=== PATIENT | female | born 1960 | race Caucasian/White ===

== ENCOUNTER 2020-10-04 12:26 | Outpatient (CLI) | payer OTHER, SELFPAY ==
--- NOTE | ~2020-10-04 | MM_ITS ---
EXAMINATION: MM screening traci BI w sri HISTORY: Screening TECHNIQUE: Craniocaudal and mediolateral oblique 3-D tomosynthesis images were obtained and synthetic 2-D images were generated. CAD analysis was submitted and interpreted. COMPARISON: No prior mammogram is available for comparison at this institution. BREAST PARENCHYMAL COMPOSITION: There are scattered areas of fibroglandular density. FINDINGS: There is no evidence of suspicious mass, calcification, or architectural distortion to sugg est malignancy in either breast. There has been no suspicious interval change. IMPRESSION: 1. No mammographic evidence of malignancy. 2. Recommend routine screening mammography in one year. BI-RADS Category 1: Negative Reviewed, dictated and finalized at location A.
== END 2020-10-04 12:27 | disposition home or self-care (01) ==
LOC: ANHIMG 12:27
PROVIDERS: PCP Internal Medicine; Visit Provider Internal Medicine
DX: Z12.31 Encounter for screening mammogram for malignant neoplasm of breast (principal)
CPT/HCPCS: 77063; 77067

== ENCOUNTER 2020-11-23 08:04 | Outpatient (CLI) | payer OTHER, SELFPAY ==
--- NOTE | ~2020-11-23 | DEXA_ITS ---
Bone Density Report Name: Batsheva Emery Age: 60 Sex: Female Ethnicity: White Date of : 1960 Indication: postmenopausal; hysterectomy; Referring Provider: ESTEVAN BROOKE Study: Bone densitometry was performed. Exam Date: November 23, 2020 Accession number: [id number] Bone Density: Region BMD T-score Z-score Classification AP Spine (L1-L4) 0.872 -1.6 0.0 Osteopenia Femoral Neck (Left) 0.599 -2.2 -0.9 Osteopenia Total Hip (Left) 0.774 -1.4 -0.3 Osteopenia Total Hip Bilateral Avg 0.786 -1.3 -0.2 Osteopenia Femoral Neck (Right) 0.559 -2.6 -1.2 Osteoporosis Total Hip (Right) 0.797 -1.2 -0.1 Osteopenia World Health Organization criteria for BMD impression classify patients as: Normal (T-score at or above -1.0), Osteopenia (T-score between -1.0 and -2.5), or Osteoporosis (T-score at or below -2.5). 10-year Fracture Risk: FRAX not reported because: Some T-score for Spine Total or Hip Total or Femoral Neck at or below -2.5 Clinical Information Provided by Patient: Has used the following medications: Vitamin D Has the following medical conditions: Hysterectomy Patient maximum height was 66 Menopause Age: 45 Drinks caffeinated beverages Onset of menses at age 10 Number of children 2 Impression: The patient has osteoporosis, based on the Right Femoral Neck T-score. Discussion: INCREASED RISK OF FRACTURE. BONE DENSITY IS UNDESIRABLY LOW AT ONE OR MORE SKELETAL SITES, CONSISTENT WITH POSTMENOPAUSAL OSTEOPOROSIS. This patient's lowest T-score meets the World Health Organization's (WHO) criteria for osteoporosis at one or more sites (T-score -2.5 or below). In untreated patients, the risk of osteoporotic fracture increases approximately two-fold for each 1.0 SD decrease in T-score. Low bone density is not the only risk factor for fracture; also consider factors such as patient's age, frailty or poor health, risk of falling, risk of injury, previous osteoporotic fracture, family history of osteoporosis, cigarette smoking, low body weight, etc. Not everyone with low bone mineral density has osteoporosis; osteomalacia and other metabolic bone disorders should also be considered. Patients who have osteoporosis should be evaluated for specific diseases and conditions (secondary causes) that may cause or contribute to bone loss. The [place] [employer]ocrinologists (AACE) and National Osteoporosis Foundation (NOF) recommend pharmacologic intervention for all postmenopausal women whose T-score is in this range. The patient should follow a healthful lifestyle (good nutrition with adequate calcium and vitamin D, and appropriate weight-bearing exercise). Follow-Up: Consider a repeat BMD and Vertebral Fracture Assessment (VFA) exam in 2 years or sooner if medically necessary, to reassess this patient's status. Rep
== END 2020-11-23 08:05 | disposition home or self-care (01) ==
LOC: ANHIMG 08:06
PROVIDERS: PCP Internal Medicine; Visit Provider Internal Medicine
DX: Z78.0 Asymptomatic menopausal state (principal); M85.88 Other specified disorders of bone density and structure, other site; M85.851 Other specified disorders of bone density and structure, right thigh; M85.852 Other specified disorders of bone density and structure, left thigh
CPT/HCPCS: 77080

== ENCOUNTER 2022-02-21 07:35 | Outpatient (CLI) | payer OTHER, SELFPAY ==
--- NOTE | ~2022-02-21 | MM_ITS ---
EXAMINATION: MM screening traci BI w sri HISTORY: Screening TECHNIQUE: Craniocaudal and mediolateral oblique 3-D tomosynthesis images were obtained and synthetic 2-D images were generated. CAD analysis was submitted and interpreted. COMPARISON: 10/04/2020 BREAST PARENCHYMAL COMPOSITION: There are scattered areas of fibroglandular density. FINDINGS: There is no evidence of suspicious mass, calcification, or architectural distortion to sugg est malignancy in either breast. There has been no suspicious interval change. IMPRESSION: 1. No mammographic evidence of malignancy. 2. Recommend routine screening mammography in one year. BI-RADS Category 1: Negative Reviewed, dictated and finalized at location A. TEST CHECKER
--- NOTE | ~2022-02-21 | DEXA_ITS ---
Bone Density Report Name: AFTAB MICHAEL Age: 61 Sex: Female Ethnicity: White Date of : 1960 Indication: postmenopausal; screening for osteoporosis; hysterectomy; Referring Provider: ESTEVAN BROOKE Study: Bone densitometry was performed. Exam Date: February 21, 2022 Accession number: [id number] Bone Density: Region BMD T-score Z-score Classification AP Spine(L1-L4) 0.887 -1.5 0.2 Osteopenia Femoral Neck (Left) 0.579 -2.4 -1.0 Osteopenia Total Hip (Left) 0.777 -1.4 -0.2 Osteopenia Femoral Neck (Right) 0.613 -2.1 -0.7 Osteopenia Total Hip (Right) 0.791 -1.2 -0.1 Osteopenia Total Hip Mean 0.784 -1.3 -0.2 Osteopenia World Health Organization criteria for BMD impression classify patients as: Normal (T-score at or above -1.0), Osteopenia (T-score between -1.0 and -2.5), or Osteoporosis (T-score at or below -2.5). 10-year Fracture Risk: FRAX not reported because: Treated for osteoporosis Clinical Information Provided by Patient: Is being treated for osteoporosis Has used the following medications: Fosamax (i.e. alendronate), Vitamin D, Calcium Has the following medical conditions: Hysterectomy, hypothyroid Patient maximum height was 66 Menopause Age: 45 Drinks caffeinated beverages Onset of menses at age 10 Number of children 2 Impression: The patient has low bone mass, based on the Left Femoral Neck T-score. Discussion: It is important to ask patients whether they are taking their medications and to encourage continued and appropriate compliance with their osteoporosis therapies to reduce fracture risk. It is also important to review their risk factors and encourage appropriate calcium and vitamin D intakes, exercise, fall prevention and other lifestyle measures. Follow-Up: Consider a repeat BMD and Vertebral Fracture Assessment (VFA) exam in 2 years or sooner if medically necessary, to reassess this patient's status. Reported by: SHERLYN on 02/21/2022 8:09:00 AM. Reviewed, dictated and finalized at location A. JENNIFER
== END 2022-02-21 07:36 | disposition home or self-care (01) ==
PROVIDERS: PCP Internal Medicine; Visit Provider Internal Medicine
DX: Z12.31 Encounter for screening mammogram for malignant neoplasm of breast (principal); M81.0 Age-related osteoporosis without current pathological fracture; M85.89 Other specified disorders of bone density and structure, multiple sites
CPT/HCPCS: 77063; 77067; 77080

== ENCOUNTER 2023-07-30 15:54 | Outpatient (CLI) | payer OTHER, SELFPAY ==
--- NOTE | ~2023-07-30 | MM_ITS ---
EXAMINATION: MM screening traci BI w rsi HISTORY: Screening TECHNIQUE: Craniocaudal and mediolateral oblique 3-D tomosynthesis images were obtained and synthetic 2-D images were generated. CAD analysis was submitted and interpreted. COMPARISON: Comparison to multiple prior studies sequentially, with oldest reviewed study dated 06/2020. BREAST PARENCHYMAL COMPOSITION: Not Dense: Breast are almost entirely fatty. FINDINGS: There is no evidence of suspicious mass, calcification, or architectural distortion to sugg est malignancy in either breast. There has been no suspicious interval change. IMPRESSION: 1. No mammographic evidence of malignancy. 2. Recommend routine screening mammography in one year. BI-RADS Category 1: Negative Reviewed, dictated and finalized at location B.
== END 2023-07-30 15:55 | disposition home or self-care (01) ==
LOC: ANHIMG 15:55
PROVIDERS: PCP Internal Medicine; Visit Provider Internal Medicine
DX: Z12.31 Encounter for screening mammogram for malignant neoplasm of breast (principal)
CPT/HCPCS: 77063; 77067

== ENCOUNTER 2023-09-17 06:31 | Day surgery (SDC) | payer MEDICARE, SELFPAY ==
[2023-08-04 15:11] VITALS: BMI 26.8
[2023-09-12 12:16] VITALS: BMI 25.0
--- NOTE | 2023-09-17 08:07 | PM.HPGS ---
History of Present Illness History of Present Illness Consent: Risks, benefits, and alternatives have been discussed and questions answered. Patient agrees to proceed with procedure. Chief complaint: History of Colon Polyps Narrative: Batsheva Emery is a 63 year old female presents for screening colonoscopy. Patient's current weight appetite and bowel movements are normal. Patient denies abdominal pain. She has had no bleeding. Previous colonoscopy his ago revealed benign colon polyp patient presents today for follow-up examination. Patient is family history is noncontributory. Review of Systems Review of Systems: All systems reviewed & are unremarkable except as noted in HPI and below PMFSH Past Medical History Medical History (Updated 08/19/23 @ 10:44 by Adrianna Raya [facility]) BMI 23.0-23.9, adult BMI 24.0-24.9, adult BMI 25.0-25.9,adult BMI 26.0-26.9,adult Breast cancer screening Encounter for preventive health examination Encounter for routine adult health examination without abnormal findings Hx of colonic polyps Hyperlipidemia Hypothyroidism (acquired) Nasal sinus congestion On fdc drug therapy Osteoporosis Peripheral neuropathy Skin lesion Statin intolerance Surgical History Surgical History H/O total hysterectomy Hx of appendectomy Family History Family History Mother Hypertension Hyperlipidemia Social History Social History Smoking status: Never smoker Second hand tobacco smoke exposure: No Alcohol intake: current Drinks per week: 3 Alcohol use details: social Substance use: never Substance use type: does not use Living arrangements: with family Gender identity (if verbalized by the patient): Female Spiritual care concerns: No Meds Home Medications and Allergies Home Medications Medication Instructions Recorded Confirmed Type multivitamin 1 tablet PO DAILY 09/21/20 09/17/23 History sodium,potassium,mag sulfates 17.5 See Rx Instructions PO .COMPLEX 08/04/23 09/17/23 Rx gram-3.13 gram-1.6 gram oral soln #354 mL (Suprep Bowel Prep Kit) phentermine 37.5 mg tablet 37.5 mg PO DAILY 09/12/23 09/17/23 History Nexlizet 180 mg-10 mg tablet See Rx Instructions .Route 09/15/23 09/17/23 Rx (bempedoic acid-ezetimibe) .COMPLEX #90 tabs alendronate 70 mg tablet See Rx Instructions .Route 09/15/23 09/17/23 Rx .COMPLEX #12 tabs levothyroxine 50 mcg tablet 50 mcg PO DAILY #90 tabs 09/15/23 09/17/23 Rx Allergies Allergy/AdvReac Type Severity Reaction Status Date / Time diphenhydramine Allergy Unknown Other Verified 09/17/23 08:02 Atnckjq-AQA-RrX Reductase AdvReac Intermediate Cramping Verified 09/17/23 08:02 Inhibitor of the [Tqhmoep-Odm-Tik Reductase Muscles Inhibitor] Exam Narrative: Physical exam reveals patient alert. Vital signs stable. HEENT is unremarkable. Patient is anicteric. Lungs are clear to auscultation and to percussion heart is without murmur or extra sounds. Abdomen bowel sounds are present soft nontender with no organomegaly. Digital external rectal exam normal. Assessment and Plan Assessment and plan (1) Hx of colonic polyps: Code(s): Z86.010 - Personal history of colonic polyps Status: Acute Assessment and Plan: Patient has a history of benign colon polyp. Most recently 2019. Plan for surveillance colonoscopy now and consider this at 5 year intervals.
[2023-09-17 08:11] VITALS: BP 133/65; PULSE 66; RESP 18; TEMP 36.8; O2SAT 98; BMI 24.7
[2023-09-17] MEDS: LACTATED RINGERS 1,000 ML 150 ML IV CONT (08:32)
--- NOTE | 2023-09-17 08:36 | WPDANESEPPF ---
Anes - Initial Pre Proc Eval Procedure: Operation Date: 09/17/23 09:00 Proposed Procedures p Diagnostic Colonoscopy - Jevon Hernandes MD Date/Time: 09/17/23 08:36 Surgeon: Jevon Hernandes MD Pre Op Diagnosis: History of Colon Polyps Patient Data Age: 63 Gender: F Height: 1.68 m Weight: 69.6 kg Last Vital Signs Temp 36.8 C 09/17/23 08:11 Pulse 66 09/17/23 08:11 Resp 18 09/17/23 08:11 BP 133/65 09/17/23 08:11 Pulse Ox 98 09/17/23 08:11 O2 Del Method Room Air 09/17/23 08:11 Allergies Allergy/AdvReac Type Severity Reaction Status Date / Time diphenhydramine Allergy Unknown Other Verified 09/17/23 08:02 Czrxzsz-QCD-LtC Reductase AdvReac Intermediate Cramping Verified 09/17/23 08:02 Inhibitor of the [Ngxdrfw-Hju-Fxa Reductase Muscles Inhibitor] Home Medications Medication Instructions Recorded Confirmed Type multivitamin 1 tablet PO DAILY 09/21/20 09/17/23 History phentermine 37.5 mg tablet 37.5 mg PO DAILY 09/12/23 09/17/23 History Nexlizet 180 mg-10 mg tablet See Rx Instructions .Route 09/15/23 09/17/23 Rx (bempedoic acid-ezetimibe) .COMPLEX #90 tabs alendronate 70 mg tablet See Rx Instructions .Route 09/15/23 09/17/23 Rx .COMPLEX #12 tabs levothyroxine 50 mcg tablet 50 mcg PO DAILY #90 tabs 09/15/23 09/17/23 Rx Patient hx anesthesia problems: none Family hx anesthesia problems: none Results Review: All pre-operative results and documents have been reviewed as part of the pre-operative evaluation. ON LICENSE OF [facility] Past Medical History Medical History BMI 23.0-23.9, adult BMI 24.0-24.9, adult BMI 25.0-25.9,adult BMI 26.0-26.9,adult Breast cancer screening Encounter for preventive health examination Encounter for routine adult health examination without abnormal findings Hx of colonic polyps Hyperlipidemia Hypothyroidism (acquired) Nasal sinus congestion On detention drug therapy Osteoporosis Peripheral neuropathy Skin lesion Statin intolerance Surgical History Surgical History H/O total hysterectomy Hx of appendectomy Family History Family History Mother Hypertension Hyperlipidemia Social History Social History Smoking status: Never smoker Second hand tobacco smoke exposure: No Alcohol intake: current Drinks per week: 3 Alcohol use details: social Substance use: never Substance use type: does not use Living arrangements: with family Gender identity (if verbalized by the patient): Female Spiritual care concerns: No Anes - Eval Final PreProcedure Day of Procedure 09/17/23 08:36 Patient weight: normal Heart: regular rate and rhythm Lungs: clear to auscultation Airway: Mallampati scale class II Neurological: alert and oriented Last oral intake: >/= 8 hours ASA classification: II Emergent: no Anesthetic plan: proceed Anesthesia type and monitoring: general GIVS and standard monitoring Results Review: All pre-operative results and documents have been reviewed as part of the pre-operative evaluation. Informed Consent: The patient's anesthetic plan and its attendant risks and benefits were discussed with the patient/family/POA. Questions were solicited and answers provided to the satisfaction of the patient/family/POA.
[2023-09-17 09:25] VITALS: BP 127/77; PULSE 63; RESP 14; O2SAT 100
[2023-09-17 09:35] VITALS: BP 134/91; PULSE 62; RESP 16; O2SAT 100
[2023-09-17 09:45] VITALS: BP 122/71; PULSE 60; RESP 16; O2SAT 100
--- NOTE | 2023-09-17 10:03 | SUR.PHASEII ---
0955; PT WAITING FOR RIDE
--- NOTE | 2023-09-17 10:28 | WPDANESPN ---
Anes - Prog Note Post-Op Date/Time: 09/17/23 10:28 Cardiovascular status: normal Respiratory status: normal Airway patency: baseline Mental status: baseline Post-Op hydration status: normal Vital Signs: Last Vital Signs Temp 36.8 C 09/17/23 08:11 Pulse 60 09/17/23 09:45 Resp 16 09/17/23 09:45 BP 122/71 09/17/23 09:45 Pulse Ox 100 09/17/23 09:45 O2 Del Method Room Air 09/17/23 09:45 Pain Score (VAS): 0/10 I/O: Intake & Output 09/16/23 09/17/23 09/17/23 23:59 07:59 15:59 Intake Total 700 Balance 700 Patient Feedback: Patient satisfied with anesthetic care.
== END 2023-09-17 10:07 | disposition home or self-care (01) ==
PROVIDERS: PCP Internal Medicine; Visit Provider Internal Medicine Gastroenterology
PROC: 0DJD8ZZ Inspection of Lower Intestinal Tract, Via Natural or Artificial Opening Endoscopic (ICD-10-PCS; CPT 45378; principal; 2023-09-17 09:00)
DX: Z86.010 Personal history of colon polyps (principal); K64.8 Other hemorrhoids
CPT/HCPCS: 45378; G0105

== ENCOUNTER 2024-09-29 10:20 | Outpatient (CLI) | payer MEDICARE, SELFPAY ==
--- NOTE | ~2024-09-29 | DEXA_ITS ---
Bone Density Report Name: AFTAB MICHAEL Age: 64 Sex: Female Ethnicity: White Date of : 1960 Indication: osteopenia; monitoring treatment; hysterectomy; Referring Provider: ESTEVAN BROOKE Study: Bone densitometry was performed. Exam Date: September 29, 2024 Accession number: [id number] Bone Density: Region BMD T-score Z-score Classification AP Spine(L1-L4) 0.927 -1.1 0.7 Osteopenia Femoral Neck (Left) 0.690 -1.4 0.1 Osteopenia Total Hip (Left) 0.885 -0.5 0.8 Normal Femoral Neck (Right) 0.664 -1.7 -0.1 Osteopenia Total Hip (Right) 0.879 -0.5 0.8 Normal Total Hip Mean 0.882 -0.5 0.8 Normal World Health Organization criteria for BMD impression classify patients as: Normal (T-score at or above -1.0), Osteopenia (T-score between -1.0 and -2.5), or Osteoporosis (T-score at or below -2.5). 10-year Fracture Risk: FRAX not reported because: Treated for osteoporosis Previous Exams: Region Exam Age BMD T-score BMD Change BMD Change Date g/cm2 vs Baseline vs Previous AP Spine (L1-L4) 09/29/2024 64 0.927 -1.1 0.055 (6.3%)* 0.040 (4.5%)* 02/21/2022 61 0.887 -1.5 0.014 (1.7%) 0.014 (1.7%) 11/23/2020 60 0.872 -1.6 Total Hip(Left) 09/29/2024 64 0.885 -0.5 0.111 (14.3%)* 0.108 (13.9%)* 02/21/2022 61 0.777 -1.4 0.003 (0.3%) 0.003 (0.3%) 11/23/2020 60 0.774 -1.4 Total Hip(Right) 09/29/2024 64 0.879 -0.5 0.082 (10.3%)* 0.088 (11.1%)* 02/21/2022 61 0.791 -1.2 -0.006 (-0.7%) -0.006 (-0.7%) 11/23/2020 60 0.797 -1.2 *Denotes significance at 95% confidence level, LSC for AP Spine = 0.022 g/cm2, LSC for Total Hip = 0.027 g/cm2 Clinical Information Provided by Patient: Is being treated for osteoporosis Has used the following medications: Fosamax (i.e. alendronate), Vitamin D, Calcium Has the following medical conditions: Hysterectomy, hypothyroid Patient maximum height was 66 Menopause Age: 45 Drinks caffeinated beverages Onset of menses at age 10 Number of children 2 Impression: The patient has low bone mass, based on the Right Femoral Neck T-score. No significant bone loss was observed. Discussion: PATIENT UNDER TREATMENT WITH NO SIGNIFICANT BMD LOSS SINCE LAST EXAM. In an untreated patient, BMD typically declines with age. A lack of decline or gain is usually a sign that treatment is efficacious and fracture risk is reduced. It is important to ask patients whether they are taking their medications and to encourage continued and appropriate compliance with their osteoporosis therapies to reduce fracture risk. It is also important to review their risk factors and encourage appropriate calcium and vitamin D intakes, exercise, fall prevention and other lifestyle measures. Follow-Up: Consider a repeat BMD and Vertebral Fracture Assessment (VFA) exam in 2 years or sooner if medically necessary, to reassess this patient's status. Reported by: SHERLYN on 09/29/2024 10:55:00 AM. Reviewed, dictated and finalized at location A.
--- OUTSIDE RECORDS SUMMARY | 2024-09-29 10:46 | XMS_ITS | Clinical Summary ---
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 Name Role Phone Unavailable Primary Care Provider Unavailabl e Social History Tobacco Use Types Packs/Day Years Used Date Smoking Tobacco: Never Assessed Comments Unknown Sex and Gender Information Value Date Recorded Sex Assigned at Not on file Legal Sex Female 6:48 PM CDT Gender Identity Not on file Sexual Orientation Not on file Plan of Treatment Health Maintenance Due Date Last Done Comments Colorectal Cancer Screening Colonoscopy (10 Years) 1960 Hepatitis C 1976 DTaP, Tdap and Td Vaccines ( 1 - Tdap) 1977 Mammogram Screening 1998 Pneumococcal Vaccine: 50+ Ye ars (1 of 1 - PCV) 2008 Zoster Vaccines (1 of 2) 2008 Dexa Scan (General) 09/11/2023 COVID-19 Vaccine ( - 2023-2 5 season) 2023 RSV Immunization or 60+ Years (1 - 1-dose 75+ series) 2033 Meningococcal B Vaccine Aged Out No l onger eligible based on patient's age to complete this topic Meningococcal Vaccine Aged Out No victoria memo eligible based on patient's age to complete this topic RSV Immunizations Under 20 Months Aged Out No longer eligible based on patient's age to complete this topic
== END 2024-09-29 10:21 | disposition home or self-care (01) ==
LOC: ANHIMG 10:21
PROVIDERS: PCP Internal Medicine; Visit Provider Internal Medicine
DX: Z78.0 Asymptomatic menopausal state (principal); M85.88 Other specified disorders of bone density and structure, other site; M85.852 Other specified disorders of bone density and structure, left thigh; M85.851 Other specified disorders of bone density and structure, right thigh
CPT/HCPCS: 77080